=== PATIENT | female | born 1950 | race Caucasian/White ===

== ENCOUNTER 2018-11-19 08:50 | Outpatient (CLI) | payer MEDICARE ==
--- NOTE | 2018-11-19 10:48 | BD ---
BONE DENSITOMETRY: INDICATION: A 68-year-old female for postmenopausal osteoporosis screening. FINDINGS: Lumbar Spine: BMD (g/cm2) L1 0.911 T-Score: -0.7 L2 0.960 T-Score: -0.6 L3 0.930 T-Score: -1.4 L4 0.870 T-Score: -1.7 L1-L4 0.917 T-Score: -1.2 Femoral Neck: 0.613 T-Score: -2.1 Total Femur: 0.990 T-Score: 0.4 Impression: Bone mineral density of the lumbar spine and femoral neck both indicate osteopenia. Ten-year fracture risk: Major osteoporotic fracture: 12%. Hip fracture: 2.2%. POS: [facility]
== END 2018-11-19 08:51 | disposition home or self-care (01) ==
LOC: BICMAMMO 08:50
PROVIDERS: ATTEND Obstetrics & Gynecology
DX: Z13.820 Encounter for screening for osteoporosis (principal); M81.0 Age-related osteoporosis without current pathological fracture; M85.89 Other specified disorders of bone density and structure, multiple sites; Z79.890 Hormone replacement therapy
CPT/HCPCS: 77080

== ENCOUNTER 2020-11-27 09:36 | Outpatient (CLI) | payer MEDICARE | END 2020-11-27 09:37 | disposition home or self-care (01) | LOC: BICMAMMO 09:36 | PROVIDERS: ATTEND Family Medicine | DX: Z12.31 Encounter for screening mammogram for malignant neoplasm of breast (principal); Z91.89 Other specified personal risk factors, not elsewhere classified | CPT/HCPCS: 77063; 77067 ==

== ENCOUNTER 2022-01-06 10:55 | Outpatient (CLI) | payer MEDICARE | END 2022-01-06 10:56 | disposition home or self-care (01) | LOC: BICMAMMO 10:55 | PROVIDERS: ATTEND Family Medicine | DX: Z12.31 Encounter for screening mammogram for malignant neoplasm of breast (principal); Z91.89 Other specified personal risk factors, not elsewhere classified | CPT/HCPCS: 77063; 77067 ==

== ENCOUNTER 2022-02-19 08:41 | Outpatient (CLI) | payer MEDICARE | END 2022-02-19 08:42 | disposition home or self-care (01) | LOC: CTENTCT 08:41 | PROVIDERS: ATTEND Specialist | DX: J32.9 Chronic sinusitis, unspecified (principal) | CPT/HCPCS: 70486 ==

== ENCOUNTER 2022-04-27 21:42 | Inpatient (IN) | payer MEDICARE ==
[2022-04-27 22:29] LABS: #Eosinphils 0.2 thou/uL (0.0-0.7); #Lymphocytes 1.8 thou/uL (1.20-3.40); #Neutrophils 7.9 thou/uL (1.40-6.50); %Basophils 0.3 % (0.0-1.0); %Eosinophils 2.3 % (0.0-10.0); %Lymphocytes 16.2 % (21.0-51.0); %Neutrophils 72.3 % (42.0-75.0); Hemoglobin 12.1 g/dL (12.0-16.0); Mean Corpuscular HGB CONC 32.7 g/dL (32.0-36.0); Mean Corpuscular Hemoglobin 31.6 pg (27.0-31.0); Mean Corpuscular Volume 96.6 fL (78.0-98.0); Mean Platelet Volume 8.1 fL (7.4-10.4); Platelet Count 280 thou/uL (130-400); RBC Distribution Width 14.2 % (11.5-14.5); Red Blood Cell (RBC) Count 3.84 mill/uL (4.20-5.40); White Blood Cell (WBC) Count 10.9 thou/uL (4.8-10.8)
[2022-04-27 22:49] LABS: ALT (SGPT) 11 U/L (8-55); AST (SGOT) 14 U/L (5-34); Albumin 3.7 g/dL (3.4-4.8); Alkaline Phosphatase 133 U/L (40-110); Anion Gap 13 mmol/L (10-20); BUN (Urea Nitrogen) 12 mg/dL (9.8-20.1); Bilirubin, Total 1.4 mg/dL (0.2-1.2); Calc. Creatinine Clearance 0 mL/min (70-130); Calcium 9.6 mg/dL (7.8-10.44); Carbon Dioxide 23 mmol/L (23-31); Chloride 108 mmol/L (98-107); Estimated GFR 81; Globulin 2.9 g/dL (2.4-3.5); Glucose 226 mg/dL (83-110); Potassium 3.3 mmol/L (3.5-5.1); Protein, Total 6.6 g/dL (5.8-8.1); Sodium 141 mmol/L (136-145)
[2022-04-27 22:54] LABS: Bacteria/HPF None Seen HPF (None Seen); Bilirubin Negative (Negative); Blood, Urine Negative (Negative); Clarity Clear (Clear); Glucose, Urine (Dipstick) Greater than 1000 mg/dL (Negative); Ketone, Urine Negative (Negative); Leukocyte Negative Leu/uL (Negative); Nitrite Negative (Negative); Protein, Urine (Dipstick) 100 mg/dL (Neg-Trace); RBC/HPF 0-3 HPF (0-3); Specific Gravity, Urine 1.037 (1.002-1.036); Squamous Epithelial 0-3 HPF (0-3); Urobilinogen Normal mg/dL (Less than 2); WBC/HPF 0-3 HPF (0-3)
[2022-04-28] MEDS ORDERED: Dicyclomine 20 MG/2 ML VIAL ONE ×3 (00:07→00:38)
[2022-04-28] MEDS ORDERED: Fentanyl 100 MCG/2 ML VIAL ONE (01:39)
[2022-04-28] MEDS ORDERED: Ondansetron PF 4 MG/2 ML Vial ONE ×2 (01:48→06:20)
[2022-04-28] MEDS ORDERED: metroNIDAZOLE 500 MG/100 ML BAG ONE ×2 (01:48→11:57)
[2022-04-28] MEDS ORDERED: Ondansetron ODT 4 MG TAB PO PRN (03:52)
[2022-04-28] MEDS ORDERED: Calcium Carbonate 500 MG ChewTAB PO PRN (03:52)
[2022-04-28] MEDS ORDERED: Senokot S 8.6-50 MG TAB PO PRN (03:52)
[2022-04-28] MEDS ORDERED: HumaLOG 300 UNITS/3 ML VIAL SC PRN ×2 (03:56→11:40)
[2022-04-28] MEDS ORDERED: Dextrose 5% in Water 1,000 ML IV PRN (03:56)
[2022-04-28] MEDS ORDERED: Dextrose 50% Abboject 50 ML SYRINGE SLOW IVP PRN (03:56)
[2022-04-28] MEDS ORDERED: Sodium Chloride 0.9% 1,000 ML IV SCH ×2 (04:00→12:09)
[2022-04-28] MEDS ORDERED: Albuterol Sulfate 2.5 mg/3 ml Neb NEB PRN (04:09)
[2022-04-28 06:11] LABS: Troponin I Less than 0.010 ng/mL (< 0.028)
[2022-04-28] MEDS ORDERED: Acetaminophen 325 MG TAB ONE (06:20)
[2022-04-28] MEDS: Acetaminophen 325 MG TAB PO PRN ×2 (06:27→21:53)
[2022-04-28] MEDS: Ondansetron PF 4 MG/2 ML Vial IVP PRN ×2 (06:27→18:44)
[2022-04-28] MEDS ORDERED: Potassium Chloride 20 MEQ TAB PO SCH (08:00)
[2022-04-28 08:32] LABS: Troponin I 0.014 ng/mL (< 0.028)
[2022-04-28] MEDS ORDERED: Famotidine/PF 20 mg/2ml Vial SLOW IVP SCH (09:00)
[2022-04-28] MEDS ORDERED: Amlodipine 5 MG TAB ONE (10:27)
[2022-04-28] MEDS ORDERED: Enoxaparin Sodium 40 MG/0.4 ML SYRINGE ONE ×2 (10:27→11:57)
[2022-04-28] MEDS ORDERED: Sucralfate 1 GM/10 ML UDCUP ONE (10:27)
[2022-04-28] MEDS ORDERED: Aspirin Chewable 81 MG TAB ONE (10:27)
[2022-04-28] MEDS ORDERED: Potassium Chloride 20 MEQ TAB ONE (10:27)
[2022-04-28] MEDS ORDERED: Ketorolac Tromethamine 30 MG/ML VIAL IVP PRN (11:29)
[2022-04-28] MEDS ORDERED: Pantoprazole 40 MG VIAL ONE (11:57)
[2022-04-28] MEDS ORDERED: Ketorolac Tromethamine 30 MG/ML VIAL ONE (11:57)
[2022-04-28] MEDS ORDERED: Aspirin 81 mg Enteric Coated Tablet ONE (12:07)
[2022-04-28] MEDS: Sucralfate 1 GM TAB PO SCH ×5 (12:10→21:48)
[2022-04-28] MEDS: Amlodipine 5 MG TAB PO SCH (12:12)
[2022-04-28] MEDS: Empagliflozin 25 MG TAB PO SCH (12:13)
[2022-04-28] MEDS: Aspirin 81 mg Enteric Coated Tablet PO SCH (12:13)
[2022-04-28] MEDS: Atorvastatin Calcium 20 MG TAB PO SCH (12:13)
[2022-04-28] MEDS: Pantoprazole 40 MG VIAL IVP SCH (12:18)
[2022-04-28] MEDS: Enoxaparin Sodium 40 MG/0.4 ML SYRINGE SC SCH (12:18)
[2022-04-28] MEDS: Ketorolac Tromethamine 30 MG/ML VIAL IVP PRN ×2 (12:19→18:32)
[2022-04-28] MEDS: metroNIDAZOLE 500 MG in Premix Bag 1 BAG IVPB SCH ×2 (12:24→18:34)
[2022-04-28 16:13] VITALS: BMI 28.5
[2022-04-29] MEDS: metroNIDAZOLE 500 MG in Premix Bag 1 BAG IVPB SCH ×3 (02:13→17:33)
[2022-04-29] MEDS: Ondansetron PF 4 MG/2 ML Vial IVP PRN ×2 (05:32→19:58)
[2022-04-29] MEDS: Acetaminophen 325 MG TAB PO PRN (05:49)
[2022-04-29 06:00] LABS: #Eosinphils 0.3 thou/uL (0.0-0.7); #Lymphocytes 1.7 thou/uL (1.20-3.40); #Monocytes 0.6 thou/uL (0.11-0.59); #Neutrophils 3.5 thou/uL (1.40-6.50); %Basophils 0.2 % (0.0-1.0); %Eosinophils 4.5 % (0.0-10.0); %Lymphocytes 27.5 % (21.0-51.0); %Monocytes 9.2 % (0.0-10.0); %Neutrophils 58.6 % (42.0-75.0); Hemoglobin 9.7 g/dL (12.0-16.0); Mean Corpuscular HGB CONC 32.8 g/dL (32.0-36.0); Mean Corpuscular Hemoglobin 32.1 pg (27.0-31.0); Mean Corpuscular Volume 97.7 fL (78.0-98.0); Mean Platelet Volume 8.2 fL (7.4-10.4); Platelet Count 187 thou/uL (130-400); RBC Distribution Width 13.9 % (11.5-14.5); Red Blood Cell (RBC) Count 3.04 mill/uL (4.20-5.40)
[2022-04-29 06:17] LABS: ALT (SGPT) 8 U/L (8-55); AST (SGOT) 11 U/L (5-34); Albumin 2.8 g/dL (3.4-4.8); Alkaline Phosphatase 89 U/L (40-110); Anion Gap 10 mmol/L (10-20); BUN (Urea Nitrogen) 13 mg/dL (9.8-20.1); Bilirubin, Total 0.8 mg/dL (0.2-1.2); Calc. Creatinine Clearance 80 mL/min (70-130); Calcium 8.1 mg/dL (7.8-10.44); Carbon Dioxide 22 mmol/L (23-31); Chloride 111 mmol/L (98-107); Estimated GFR 88; Globulin 2.2 g/dL (2.4-3.5); Glucose 139 mg/dL (83-110); Potassium 3.7 mmol/L (3.5-5.1); Sodium 139 mmol/L (136-145)
[2022-04-29] MEDS: Ketorolac Tromethamine 30 MG/ML VIAL IVP PRN (09:34)
[2022-04-29] MEDS: Aspirin 81 mg Enteric Coated Tablet PO SCH (10:42)
[2022-04-29] MEDS: Amlodipine 5 MG TAB PO SCH (10:42)
[2022-04-29] MEDS: Sucralfate 1 GM TAB PO SCH ×4 (10:42→22:35)
[2022-04-29] MEDS: Enoxaparin Sodium 40 MG/0.4 ML SYRINGE SC SCH (10:43)
[2022-04-29] MEDS: Atorvastatin Calcium 20 MG TAB PO SCH (10:43)
[2022-04-29] MEDS: Empagliflozin 25 MG TAB PO SCH (10:43)
[2022-04-29] MEDS: Pantoprazole 40 MG VIAL IVP SCH (10:44)
[2022-04-29] MEDS ORDERED: traMADol HCl 50 MG TAB PO PRN (11:49)
[2022-04-29] MEDS ORDERED: Scopolamine 1.5 mg/72 hour Patch TD SCH (13:00)
[2022-04-29] MEDS: Fioricet 325/50/40 mg Tablet PO PRN ×2 (14:31→19:58)
[2022-04-30] MEDS ORDERED: Metoprolol Tartrate 5 MG/5 ML VIAL IVP PRN (02:31)
[2022-04-30] MEDS: metroNIDAZOLE 500 MG in Premix Bag 1 BAG IVPB SCH ×3 (02:44→17:38)
[2022-04-30] MEDS: Ondansetron PF 4 MG/2 ML Vial IVP PRN ×3 (03:01→14:11)
[2022-04-30] MEDS: Fioricet 325/50/40 mg Tablet PO PRN ×3 (04:16→15:01)
[2022-04-30] MEDS: Sucralfate 1 GM TAB PO SCH ×4 (08:19→21:01)
[2022-04-30] MEDS: Enoxaparin Sodium 40 MG/0.4 ML SYRINGE SC SCH (08:19)
[2022-04-30] MEDS: Aspirin 81 mg Enteric Coated Tablet PO SCH (08:19)
[2022-04-30] MEDS: Pantoprazole 40 MG VIAL IVP SCH (08:19)
[2022-04-30] MEDS: Atorvastatin Calcium 20 MG TAB PO SCH (08:19)
[2022-04-30] MEDS: Amlodipine 5 MG TAB PO SCH (08:19)
[2022-04-30] MEDS: Empagliflozin 25 MG TAB PO SCH (08:19)
[2022-05-01] MEDS: metroNIDAZOLE 500 MG in Premix Bag 1 BAG IVPB SCH ×2 (01:16→10:41)
[2022-05-01] MEDS: Ondansetron PF 4 MG/2 ML Vial IVP PRN (01:21)
[2022-05-01] MEDS: Fioricet 325/50/40 mg Tablet PO PRN ×2 (01:21→08:22)
[2022-05-01 08:13] VITALS: BP 140/73; TEMP 98
[2022-05-01] MEDS: Amlodipine 5 MG TAB PO SCH (08:21)
[2022-05-01] MEDS: Sucralfate 1 GM TAB PO SCH (08:21)
[2022-05-01] MEDS: Aspirin 81 mg Enteric Coated Tablet PO SCH (08:21)
[2022-05-01] MEDS: Pantoprazole 40 MG VIAL IVP SCH (08:22)
[2022-05-01] MEDS: Empagliflozin 25 MG TAB PO SCH (08:22)
[2022-05-01] MEDS: Atorvastatin Calcium 20 MG TAB PO SCH (08:22)
[2022-05-01] MEDS: Enoxaparin Sodium 40 MG/0.4 ML SYRINGE SC SCH (08:22)
[2022-05-01] MEDS ORDERED: Scopolamine 1.5 mg/72 hour Patch TD SCH (12:15)
== END 2022-05-01 12:30 | disposition home or self-care (01) | DRG 392 ==
LOC: ERS 21:42 → ERHOLD 04-28 03:01 → NEURO 04-28 14:43 → OBSVTOIN 04-29 11:50
PROVIDERS: ADMIT Internal Medicine; ATTEND Internal Medicine
DX: K57.32 Diverticulitis of large intestine without perforation or abscess without bleeding (principal); Z20.822 Contact with and (suspected) exposure to COVID-19; I10 Essential (primary) hypertension; E11.9 Type 2 diabetes mellitus without complications; E78.5 Hyperlipidemia, unspecified; K21.9 Gastro-esophageal reflux disease without esophagitis; K44.9 Diaphragmatic hernia without obstruction or gangrene; R00.0 Tachycardia, unspecified; J45.909 Unspecified asthma, uncomplicated; R41.0 Disorientation, unspecified; Z88.5 Allergy status to narcotic agent; Z79.899 Other long term (current) drug therapy; Z79.82 Long term (current) use of aspirin; Z90.710 Acquired absence of both cervix and uterus; Z98.890 Other specified postprocedural states; Z87.891 Personal history of nicotine dependence
CPT/HCPCS: 36415; 36416; 70450; 74176; 80053; 81003; 81015; 84484; 85025; 93005; 96372; 96374; 96375; 96376; C9113; G0378; J1650; J1885; J1956; J2405; J3010; J7050; Q0162; U0003; U0005

== ENCOUNTER 2022-05-27 07:53 | Day surgery (SDC) | payer MEDICARE ==
[2022-05-27] MEDS ORDERED: Oxymetazoline HCl 0.05% (30 ML BOT) ONE (09:53)
[2022-05-27] MEDS ORDERED: PROPOFOL 200 MG/20 ML VIAL ONE (10:02)
== END 2022-05-27 11:06 | disposition home or self-care (01) ==
LOC: SDC 07:53
PROVIDERS: ATTEND Internal Medicine Gastroenterology
PROC: 0DJ08ZZ Inspection of Upper Intestinal Tract, Via Natural or Artificial Opening Endoscopic (ICD-10-PCS; principal; 2022-05-27)
PROC: 0DBK8ZX Excision of Ascending Colon, Via Natural or Artificial Opening Endoscopic, Diagnostic (ICD-10-PCS; 2022-05-27)
PROC: 0DBN8ZX Excision of Sigmoid Colon, Via Natural or Artificial Opening Endoscopic, Diagnostic (ICD-10-PCS; 2022-05-27)
DX: Z12.11 Encounter for screening for malignant neoplasm of colon (principal); D12.2 Benign neoplasm of ascending colon; D12.5 Benign neoplasm of sigmoid colon; K21.9 Gastro-esophageal reflux disease without esophagitis; K44.9 Diaphragmatic hernia without obstruction or gangrene; K57.30 Diverticulosis of large intestine without perforation or abscess without bleeding; E11.9 Type 2 diabetes mellitus without complications; I10 Essential (primary) hypertension; E78.00 Pure hypercholesterolemia, unspecified; R05.3 Chronic cough; Z86.010 Personal history of colon polyps; Z79.82 Long term (current) use of aspirin; Z79.84 Long term (current) use of oral hypoglycemic drugs; Z79.899 Other long term (current) drug therapy; Z88.5 Allergy status to narcotic agent
CPT/HCPCS: 88305; J2704

== ENCOUNTER → 2022-06-04 | Day surgery (SDC) | payer MEDICARE | END | disposition home or self-care (01) | LOC: SDC 07:34 | PROVIDERS: ATTEND Internal Medicine Gastroenterology | DX: K21.9 Gastro-esophageal reflux disease without esophagitis (principal); K44.9 Diaphragmatic hernia without obstruction or gangrene; R05.3 Chronic cough; Z88.5 Allergy status to narcotic agent | CPT/HCPCS: 91010 ==

== ENCOUNTER 2022-06-18 11:35 | Outpatient (CLI) | payer MEDICARE ==
[2022-06-18 13:02] LABS: #Eosinphils 0.4 10x3/uL (0.0-0.5); #Monocytes 0.7 10x3/uL (0.0-1.1); %Basophils 0.4 % (0.0-2.0); %Eosinophils 4.3 % (0.0-6.0); %Lymphocytes 21.7 % (18.0-47.0); %Monocytes 7.1 % (0.0-10.0); %Neutrophils 66.2 % (40.0-75.0); Hemoglobin 14.5 g/dL (12.0-15.5); Mean Corpuscular HGB CONC 33.9 g/dL (32.0-36.0); Mean Corpuscular Volume 91.5 fl (81.6-98.3); Platelet Count 282 10x3/uL (150-450); RBC Distribution Width 12.8 % (11.5-14.5); Red Blood Cell (RBC) Count 4.68 10x6/uL (3.90-5.03); White Blood Cell (WBC) Count 9.1 10x3/uL (3.5-10.5)
[2022-06-18 13:41] LABS: Anion Gap 16 mmol/L (10-20); BUN (Urea Nitrogen) 15 mg/dL (9.8-20.1); Calc. Creatinine Clearance 0 mL/min (70-130); Calcium 9.3 mg/dL (7.8-10.44); Carbon Dioxide 22 mmol/L (23-31); Chloride 108 mmol/L (98-107); Estimated GFR 85; Glucose 181 mg/dL (83-110); Potassium 3.4 mmol/L (3.5-5.1); Sodium 143 mmol/L (136-145)
== END 2022-06-18 11:36 | disposition home or self-care (01) ==
LOC: LABBT 11:35
PROVIDERS: ATTEND Surgery
DX: Z01.818 Encounter for other preprocedural examination (principal); K44.9 Diaphragmatic hernia without obstruction or gangrene
CPT/HCPCS: 80048; 85025; 93005; 93010

== ENCOUNTER 2022-06-24 07:15 | Day surgery (SDC) | payer MEDICARE ==
[2022-06-23 13:28] VITALS: BMI 27.4
[2022-06-24] MEDS ORDERED: Scopolamine 1.5 mg/72 hour Patch ONE (08:17)
[2022-06-24] MEDS ORDERED: fentaNYL PF 100 MCG/2 ML SYRINGE ONE ×2 (09:10→09:11)
[2022-06-24] MEDS ORDERED: Dexmedetomidine 200 MCG/2 ML VIAL ONE (09:11)
[2022-06-24] MEDS ORDERED: SUGAMMADEX SODIUM 200 MG/2 ML VIAL ONE (09:11)
[2022-06-24] MEDS ORDERED: Bupivacaine/Epinephrine 0.25% 30 ML VIAL ONE ×2 (09:12)
[2022-06-24] MEDS ORDERED: CEFAZOLIN 2 GM VIAL ONE (09:19)
[2022-06-24] MEDS ORDERED: Sodium Chloride 0.9% 100 ML ONE (09:19)
[2022-06-24] MEDS ORDERED: Albuterol Sulfate HFA (OR ONLY) ONE (09:33)
[2022-06-24] MEDS ORDERED: PROPOFOL 200 MG/20 ML VIAL ONE (09:33)
[2022-06-24] MEDS ORDERED: Succinylcholine 200 MG/10 ml SYRINGE FS ONE (09:33)
[2022-06-24] MEDS ORDERED: NEOSTIGMINE 3 MG/3 ML SYR 3 MG/3 ML SYRINGE ONE (09:33)
[2022-06-24] MEDS ORDERED: Rocuronium Bromide 10 MG/ML (10ML VIAL) ONE (09:33)
[2022-06-24] MEDS ORDERED: Labetalol HCl 100 MG/20 ML VIAL ONE (09:33)
[2022-06-24] MEDS ORDERED: Ondansetron PF 4 MG/2 ML Vial ONE (09:33)
[2022-06-24] MEDS ORDERED: Dexamethasone 20 MG/5 ML VIAL ONE (09:33)
[2022-06-24] MEDS ORDERED: FENTANYL 50 MCG/ML 1 ML VIAL ONE ×3 (11:25→13:34)
[2022-06-24] MEDS ORDERED: Ketorolac Tromethamine 30 MG/ML VIAL ONE (11:46)
[2022-06-24] MEDS ORDERED: Promethazine HCl 25 MG/ML VIAL ONE ×2 (12:11→12:12)
== END 2022-06-24 15:17 | disposition home or self-care (01) ==
LOC: SDC 07:15
PROVIDERS: ATTEND Surgery
PROC: 0BQT4ZZ Repair Diaphragm, Percutaneous Endoscopic Approach (ICD-10-PCS; principal; 2022-06-24)
PROC: 8E0W4CZ Robotic Assisted Procedure of Trunk Region, Percutaneous Endoscopic Approach (ICD-10-PCS; 2022-06-24)
DX: K44.9 Diaphragmatic hernia without obstruction or gangrene (principal); I10 Essential (primary) hypertension; E78.00 Pure hypercholesterolemia, unspecified; K21.9 Gastro-esophageal reflux disease without esophagitis; Z79.82 Long term (current) use of aspirin; Z79.84 Long term (current) use of oral hypoglycemic drugs; Z79.899 Other long term (current) drug therapy; Z88.5 Allergy status to narcotic agent
CPT/HCPCS: 43281; 93005; J3010; 93010; J1100; J1885; J2405; J2550; J2704; J3490; J7643

== ENCOUNTER 2022-07-07 16:31 | Outpatient (CLI) | payer MEDICARE | END 2022-07-07 16:32 | disposition home or self-care (01) | LOC: RAD 16:31 | PROVIDERS: ATTEND Internal Medicine Gastroenterology | DX: K21.9 Gastro-esophageal reflux disease without esophagitis (principal); K44.9 Diaphragmatic hernia without obstruction or gangrene; R05.3 Chronic cough | CPT/HCPCS: 71046 ==

== ENCOUNTER 2023-01-22 10:10 | Outpatient (CLI) | payer MEDICARE ==
[2023-01-22 12:41] LABS: Hemoglobin 15.2 g/dL (12.0-15.5)
[2023-01-22 13:34] LABS: Anion Gap 15 mmol/L (10-20); BUN (Urea Nitrogen) 32 mg/dL (9.8-20.1); Calc. Creatinine Clearance 0 mL/min (70-130); Carbon Dioxide 22 mmol/L (23-31); Chloride 104 mmol/L (98-107); Estimated GFR 63; Glucose 185 mg/dL (83-110); Potassium 4.4 mmol/L (3.5-5.1); Sodium 137 mmol/L (136-145)
== END 2023-01-22 10:11 | disposition home or self-care (01) ==
LOC: LABBT 10:10
PROVIDERS: ATTEND Student in an Organized Health Care Education/Training Program
DX: Z01.818 Encounter for other preprocedural examination (principal); J34.2 Deviated nasal septum; J34.3 Hypertrophy of nasal turbinates; J32.4 Chronic pansinusitis
CPT/HCPCS: 80048; 85014; 85018; 93005; 93010

== ENCOUNTER 2023-01-28 08:18 | Emergency (ER) | payer MEDICARE ==
[2023-01-28] MEDS ORDERED: Ondansetron ODT 4 MG TAB ONE (10:00)
[2023-01-28] MEDS ORDERED: Acetaminophen 500 MG TAB ONE (10:00)
== END 2023-01-28 10:04 | disposition home or self-care (01) ==
LOC: ERS 08:18
DX: R04.0 Epistaxis (principal); J44.9 Chronic obstructive pulmonary disease, unspecified; E78.5 Hyperlipidemia, unspecified; I10 Essential (primary) hypertension; E11.9 Type 2 diabetes mellitus without complications; Z79.899 Other long term (current) drug therapy; Z79.82 Long term (current) use of aspirin
CPT/HCPCS: 99283; Q0162

== ENCOUNTER 2023-03-03 09:51 | Outpatient (CLI) | payer MEDICARE | END 2023-03-03 09:52 | disposition home or self-care (01) | LOC: BICMAMMO 09:51 | PROVIDERS: ATTEND Family Medicine | DX: Z12.31 Encounter for screening mammogram for malignant neoplasm of breast (principal); Z91.89 Other specified personal risk factors, not elsewhere classified | CPT/HCPCS: 77063; 77067 ==

== ENCOUNTER 2023-12-24 12:57 | Outpatient (CLI) | payer MEDICARE | END 2023-12-24 12:58 | disposition home or self-care (01) | LOC: RAD 12:57 | PROVIDERS: ATTEND Internal Medicine Critical Care Medicine | DX: R06.00 Dyspnea, unspecified (principal) | CPT/HCPCS: 71046 ==

== ENCOUNTER 2024-04-12 11:48 | Outpatient (CLI) | payer MEDICARE | END 2024-04-12 11:49 | disposition home or self-care (01) | LOC: BICMAMMO 11:48 | PROVIDERS: ATTEND Nurse Practitioner Family | DX: Z12.31 Encounter for screening mammogram for malignant neoplasm of breast (principal); Z91.89 Other specified personal risk factors, not elsewhere classified | CPT/HCPCS: 77067 ==